=== PATIENT | female | born 1950 | race Caucasian/White ===

== ENCOUNTER 2022-04-11 07:40 | Day surgery (SDC) | payer MEDICARE, OTHER ==
[~2022-04-11] VITALS: Ht 160 cm; Wt 82.3 kg
[2022-04-11] MEDS ORDERED: CATAPRES0.1 MG PO (08:31)
[2022-04-11] MEDS ORDERED: Amlodipine Bes2.5 MG PO (08:32)
[2022-04-11] MEDS ORDERED: LEVSOD75 PO (08:32)
[2022-04-11] MEDS ORDERED: PRAV20 PO (08:32)
[2022-04-11] MEDS ORDERED: LISI20 PO (08:32)
[2022-04-11] MEDS ORDERED: LORA10ER PO (08:33)
--- NOTE | 2022-04-11 10:19 | NUR ---
04/11/22 1019 Bridget Wadsworth BUPIVACAINE 0.5% 30 MLS MIXED WITH EPI 0.15ML PER ORDER TO MAKE BUPIVACAINE 0.5% 1:200,000 FOR INJECTION AT OPSITE BY DR. GREGG.
--- NOTE | 2022-04-11 11:57 | NUR ---
04/11/22 1157 JENNIFER ROSS PAIN NOW 03/11
== END 2022-04-11 12:55 | disposition home or self-care (01) ==
LOC: ORSCSDS 07:40
PROVIDERS: Orthopaedic Surgery
PROC: 0LU Tendons, Supplement (ICD-10-PCS; principal; 2022-04-11 09:15)
DX: M76.02 Gluteal tendinitis, left hip (principal); M89.9 Disorder of bone, unspecified; I10 Essential (primary) hypertension; E03.9 Hypothyroidism, unspecified; E78.5 Hyperlipidemia, unspecified; Z79.899 Other long term (current) drug therapy
CPT/HCPCS: 73502; A9270; C1713; J0171; J0690; J1100; J2405; J2704; J3010; J7120

== ENCOUNTER → 2024-09-27 | Outpatient (CLI) | payer MEDICARE ==
[~2024-09-27] MED LIST: Amlodipine Bes2.5 MG PO; B-12500 MC2 PO; CATAPRES0.1 MG PO; Calcium Carbon500 MG PO; EUTHYROX88 MCG; LISI20 PO; LORA10ER PO; MAGNESIUM OXID500 MG PO; MULVITA PO; PRAV20 PO; Vitamin D1000 UNI1 PO; ZINC15
== END | disposition home or self-care (01) ==
LOC: LAB 17:38 → LAB SHORT 17:38
DX: N39.0 Urinary tract infection, site not specified (principal)
CPT/HCPCS: 87077; 87086; 87186

== ENCOUNTER 2024-10-11 09:03 | Day surgery (SDC) | payer MEDICARE ==
[~2024-10-11] VITALS: Ht 157.5 cm; Wt 83.1 kg
[2024-10-11] VITALS (12 sets, daily range): BP systolic 116–147; BP diastolic 61–71
[~2024-10-11 09:03] MED LIST changes: +CeFAZolin Sodium 2,000 MG in NS 100 ML IV SCH; +Lactated Ringer's 1,000 ML IV SCH
[2024-10-11] MEDS ORDERED: CeFAZolin Sodium 2,000 MG VIAL ONE (09:24)
--- NOTE | 2024-10-11 09:34 | NUR ---
History, Chart, Medications and Allergies reviewed before start of procedure. Lungs clear T/O to Auscultation. Patient confirms NPO status and agrees with scheduled surgery. Patient reports completing Chlorhexadine shower X2 prior to admission to hospital. Pre-Op teaching done. Pt verbalizes understanding.
[2024-10-11] MEDS ORDERED: Bupivacaine 0.5% HCl 5 MG/ML 30MLVIAL ONE (09:44)
[2024-10-11] MEDS ORDERED: Etomidate 2MG / ML 10ML Vial ONE (10:03)
[2024-10-11] MEDS ORDERED: FentaNYL Citrate 50 MCG/ML 2 ML Injection ONE (10:05)
[2024-10-11] MEDS ORDERED: Ondansetron HCl 2 MG / ML 2ML Vial ONE (10:12)
[2024-10-11] MEDS ORDERED: Dexamethasone Sod Phos 10 MG/ML 1ML VIAL ONE (10:12)
[2024-10-11] MEDS ORDERED: Rocuronium Bromide 10 MG/ML 5ML Injection IV ONE ×2 (10:13→11:12)
[2024-10-11] MEDS ORDERED: SuccINYLCHOLINE Chloride 100 MG/5 ML 5MLSYR ONE (10:13)
[2024-10-11] MEDS ORDERED: Lidocaine HCl 2% 20 ML MDV ONE (10:19)
[2024-10-11] MEDS ORDERED: Phenylephrine HCl 100 MCG/ML-NS 10MLSYR (1MG/10ML) ONE ×2 (10:30→11:03)
[2024-10-11] MEDS ORDERED: Sugammadex Sodium 200 MG/2ML SDV (100 MG/ML) ONE (11:36)
[2024-10-11] MEDS ORDERED: HYDROmorphone HCl/Pf 1MG SYR ONE (11:59)
[2024-10-11] MEDS ORDERED: OxyCODONE 5 mg/Acetamin 325 mg TABLET PO PRN (12:15)
--- NOTE | 2024-10-11 14:05 | NUR ---
Patient up to Ambulate independently. Gait steady with standby assist. Discharge instructions reviewed with patient. Patient verbalizes understanding. Copy given to patient to take home. X4 INCISIONAL SITES D&I WITH ABD BINDER IN PLACED. X2 PUNCTURE SITES TO ABD FROM TAP BLOCK/D&I. Patient States Post-Procedure ride home has been arranged with jones Mcpherson. Discharged via wheelchair to private car for ride home.
== END 2024-10-11 13:58 | disposition home or self-care (01) ==
LOC: ORSCMMR 09:03 → ORD 10:30 → ORSCMMR 13:58
PROVIDERS: Surgery
PROC: 3E0T3BZ Introduction of Anesthetic Agent into Peripheral Nerves and Plexi, Percutaneous Approach (ICD-10-PCS; principal; 2024-10-11 10:30)
PROC: 8E0W4CZ Robotic Assisted Procedure of Trunk Region, Percutaneous Endoscopic Approach (ICD-10-PCS; principal; 2024-10-11 10:30)
PROC: 0WUF4JZ Supplement Abdominal Wall with Synthetic Substitute, Percutaneous Endoscopic Approach (ICD-10-PCS; principal; 2024-10-11 10:30)
DX: K43.6 Other and unspecified ventral hernia with obstruction, without gangrene (principal); N73.6 Female pelvic peritoneal adhesions (postinfective); I10 Essential (primary) hypertension; Z79.899 Other long term (current) drug therapy
CPT/HCPCS: A9270; C1781; J0330; J0690; J1100; J1171; J2371; J2405; J3010; J7120